=== PATIENT | female | born 1945 ===

== ENCOUNTER 2024-12-09 15:27 | Emergency (ER) | payer BC ==
[2024-12-09 15:37] VITALS: BP 136/62; PULSE 101; RESP 17; TEMP 97.7; BMI 21.3
[2024-12-09] MEDS ORDERED: ACETAMINOPHEN INJECTION 100 ML ONE (15:52)
[2024-12-09] MEDS ORDERED: KETOROLAC TROMETHAMINE 15 MG/ML VIAL ONE (15:52)
[2024-12-09] MEDS: SODIUM CHLORIDE 0.9% 500 ML INFUS.BAG IV ONE (16:17)
[2024-12-09] MEDS: ACETAMINOPHEN 1000 MG/100 ML BAG IVPB ONE (16:18)
[2024-12-09 16:19] LABS: ABSOLUTE IMMATURE GRANULOCYTES 0.05 x10^3/uL (0.0-0.031); BASOPHILS # 0.03 x10^3/uL (0.01-0.08); EOSINOPHIL % 0.2 % (0.7-5.8); EOSINOPHILS # 0.03 x10^3/uL (0.04-0.36); MCHC 32.9 g/dl (32.2-35.5); MEAN CELL VOLUME 87.8 fl (79.4-94.8); MEAN PLT VOLUME 9.7 fl (9.4-12.3); MONOCYTE # 1.01 x10^3/uL (0.24-0.86); MONOCYTE % 8.3 % (4.7-12.5); RDW 14.3 % (12.5-17.0)
[2024-12-09] MEDS: KETOROLAC TROMETHAMINE 15 MG/ML VIAL IVPUSH ONE (16:19)
[2024-12-09 16:28] LABS: INR 1.01 (0.83-1.09); PROTHROMBIN TIME (PATIENT) 11.1 SEC (9.7-13.0)
[2024-12-09 16:30] LABS: ACTIVATED PTT 28.3 SECONDS (25.2-36.5)
[2024-12-09 17:04] LABS: GLUCOSE,RANDOM 98.0 mg/dL (74-106); TOT PROT 6.5 g/dl (6.4-8.2)
[2024-12-09 17:05] LABS: CO2 21.0 mmol/L (21-32)
[2024-12-09 17:07] LABS: ALK PHOS 109.0 U/L (40-150)
[2024-12-09 17:10] LABS: CREATININE 1.38 mg/dL (0.55-1.3); SGOT/AST 26.0 U/L (5-34); SGPT/ALT 10.0 U/L (0-55)
[2024-12-09 17:36] LABS: HCV DIAGNOSTIC IN-HOUSE W/RFLX NON-REACTIVE (NONREACTIVE); HIV INTERPRETATION NEGATIVE (NEGATIVE)
[2024-12-09] MEDS: morphine CARPU-JECT 4 MG/1 ML DISP.SYRIN IVPUSH ONE (19:48)
== END 2024-12-09 19:50 | disposition home or self-care (01) ==
LOC: JER 15:27
PROC: 3E033NZ Introduction of Analgesics, Hypnotics, Sedatives into Peripheral Vein, Percutaneous Approach (ICD-10-PCS; principal; 2024-12-09)
PROC: 3E0333Z Introduction of Anti-inflammatory into Peripheral Vein, Percutaneous Approach (ICD-10-PCS; 2024-12-09)
DX: R10.A1 Flank pain, right side (principal)
CPT/HCPCS: 36415; 74018-TC-FY; 80053; 85025; 85610; 85730; 86803; 87389; 99284-25